=== PATIENT | female | born 1960 | race Caucasian/White ===

== ENCOUNTER 2024-06-21 09:26 | Outpatient (AMB) | payer OTHER, SELFPAY ==
[2024-06-21 09:51] VITALS: BP 138/86; PULSE 86; RESP 13; O2SAT 99; BMI 19.6
--- NOTE | 2024-06-21 09:51 | MHC.PC.OV ---
Vital Signs 06/21/24 09:51 Height 5 ft 4 in Weight 114 lb BMI 19.6 BP 138/86 Blood Pressure Location Rt brachial Position Sitting Respiration 13 Pulse 86 Pulse Source Pulse Oximeter Pulse Oximetry (%) 99 Oxygen Delivery Method Room Air Intake Visit Reasons: Continue care Intake Note: Patient is here to transfer care from [facility] to [facility]. Patient would like to request a referral to Dr. Collin Vieira [facility] [place]. Anthropology Instructor Required: No Accompanied by: Self / Same As Patient Allergies No Known Allergies Allergy (Verified 06/21/24 09:59) Tobacco use date assessed: 06/21/24 Fall risk assessment: No Falls in past year Last assessed Fall Risk: 06/21/24 Dental Screening Dental Screen Date: 06/21/24 Did you have a dental visit in the last 12 months?: No Did you have a dental problem in the last 6 months where you did not have access to dental care?: No Was dental information given to patient?: Patient has dentist HPI HPI Comments History of Present Illness Details The patient is a 63 year old female with a past medical history of aplastic anemia, PNH, hypertension presenting for follow up CV: losartan 100mg. She was on cartia in the past. Denies chest pain, dizziness, vision changes Aplastic anemia: She follows with [facility], Dr Stovall. Was seeing Dr Stafford locally. Diagnosed in 2019 after c/o fatigue, bruising soon after son . [place] pancytopenia. Stopped her meds at the time-paxil, chlorthalidione. Workup for secondary causes of aplastic anemia. Proceeded with immunosuppressive therapy starting in December 2018. She is on Promacta, Fabhalta. Valtrex 500,g daily Preventive: due for mmamogram ROS CONSTITUTIONAL: Denies weight loss, fever and chills. HEENT: Denies changes in vision and hearing. RESPIRATORY: Denies SOB and cough. CV: Denies palpitations and CP GI: Denies abdominal pain, nausea, vomiting and diarrhea. : Denies dysuria and urinary frequency. MSK: Denies new myalgia and joint pain. SKIN: Denies rash and pruritus. NEUROLOGICAL: Denies headache PSYCHIATRIC: Denies recent changes in mood. PHYSICAL EXAM: GENERAL: Alert and oriented x 3. NAD EYES: EOMI. Anicteric. HENT: Moist mucous membranes. No scleral icterus. No cervical lymphadenopathy. LUNGS: Clear to auscultation bilaterally. CARDIOVASCULAR: Regular rate and rhythm. No murmur. No JVD. ABDOMEN: Soft, non-tender +bs EXTREMITIES: No edema. Non-tender. SKIN: No rashes or lesions. Warm. NEUROLOGIC: No focal neurological deficits. CN II-XII grossly intact PSYCHIATRIC: Cooperative. Appropriate mood and affect [facility] Medical History (Updated 06/25/24 @ 13:39 by Julissa Taylor MD) Hypertension Paroxysmal nocturnal hemoglobinuria (PNH) Aplastic anemia Surgical History No pertinent past surgical history Family History Mother Hypertension High blood cholesterol Cardiovascular disease Father Cardiovascular disease High blood cholesterol Hypertension Social History Household Members: Spouse and Children Housing: House Are you a primary child care center administrator to a significant other at home: No Do you presently have visiting nurse or other home services: No 75 years or older and lives alone: No Alcohol intake: current Alcohol intake frequency: 0-2 drinks per day Alcohol type: wine Patient Tobacco Use Status: Never used Tobacco e-Cigarette/Vaping Use: Never Used service: No Current occupational status: retired Cognitive needs: No Hearing needs: No Vision needs: No Questionnaire PHQ-9 Over the last 2 weeks, how often have you been bothered by any of the following problems? 1. Little interest or pleasure in doing things: not at all 2. Feeling down, depressed, or hopeless: not at all 3. Trouble falling or staying asleep, or sleeping too much: not at all 4. Feeling tired or having little energy: not at all 5. Poor appetite or overeating: not at all 6. Feeling bad about yourself - or that you are a failure or have let yourself or your family down: not at all 7. Trouble concentrating on things, such as reading the newspaper or watching television: not at all 8. Moving or speaking so slowly that other people could have noticed. Or the opposite - being so fidgety or restless that you have been moving around a lot more than usual: not at all 9. Thoughts that you would be better off or of hurting yourself in some way: not at all Total score: 0 Depression Screening Interpretation: Negative (neg) Depression Screening Done: Yes [id number] - PHQ-9 Billing: Yes Source: Developed by Drs. Torito Almanza, Merna Kirkland, Vince Emmanuel and colleagues, with an educational iglesia from [employer]. Thrive Questionnaire Date Thrive assessed: 06/21/24 I am a: Patient Within the past 12 months, did the food you bought not last and you didn't have the money to get more?: Never true Within the past 12 months, did you worry whether your food would run out before you got money to buy more?: Never true Do you have trouble paying for medicines?: No Do you have trouble getting transportation to medical appointments?: No Do you have trouble paying your heating and electricity bill?: No Do you have trouble taking care of your child, family member or friend?: No Do you have trouble with day-to-day activities such as bathing, preparing meals, shopping, managing finances, etc.?: No Are you currently unemployed and looking for a job?: No Are you interested in more education?: No Please select the resources that you would like help with: None Currently or been in a relationship where the following occur: No concerns reported THRIVE Score: 0 AUDIT C Alcohol Use Questionnaire (AUDIT-C) 1. How often do you have a drink containing alcohol?: 4 or more times a week 2. How many drinks containing alcohol do you have on a typical day when you are drinking?: 1 or 2 3. How often do you have six or more drinks on one occasion?: Never Total Score: 4 VÍCTOR-7 AMB Questionnaire VÍCTOR-7 Date VÍCTOR - 7 assessed: 06/21/24 Feeling nervous, anxious, or on edge: 0 = Not at all Not being able to stop or control worryin = Not at all Worrying too much about different things: 0 = Not at all Trouble relaxin = Not at all Being so restless that it is hard to sit still: 0 = Not at all Becoming easily annoyed or irritable: 0 = Not at all Feeling afraid as if something awful might happen: 0 = Not at all Total VÍCTOR-7 score (0-4 normal; 5-9 mild; 10-14 moderate; 15-21 severe): 0 Source: Developed by Drs. Torito Almanza, Merna Kirkland, Vince Emmanuel and colleagues, with an educational iglesia from [employer]. VÍCTOR-7 Assessment Billing VÍCTOR-7 Assessment Tool: VÍCTOR-7 Assessment [id number] Physical exam (Primary Care) Vital Signs: Last Vital Signs Pulse 86 06/21/24 09:51 Resp 13 06/21/24 09:51 BP 138/86 06/21/24 09:51 Pulse Ox 99 06/21/24 09:51 Oxygen Delivery Method Room Air 06/21/24 09:51 BMI result Body Mass Index 19.6 Tobacco/Smoking Status: Tobacco use Status Tobacco use date assessed 06/21/24 06/21/24 10:07 Patient Tobacco Use Status Never used Tobacco 06/21/24 10:16 e-Cigarette/Vaping Use Never Used 06/21/24 10:07 PHQ-9: PHQ-9 Score PHQ-9: Total score 0 06/25/24 13:41 Depression Screening Interpretation: Negative (neg) Thrive Assessment: Date of Thrive Assessment Date Thrive assessed 06/21/24 06/21/24 10:10 Currently or been in a relationship where the following occur: No concerns reported Assessment and Plan Assessment & Plan (1) Aplastic anemia: Code(s): D61.9 - Aplastic anemia, unspecified Plan: continue follow up with hematology (2) Hypertension: Code(s): I10 - Essential (primary) hypertension Qualifiers: Hypertension type: primary hypertension Qualified Code(s): I10 - Essential (primary) hypertension Plan: Adequate control on current medications Orders: Orders IRON PROFILE 06/21/24 D61.9 - Aplastic anemia, unspecified MM screening mammo BI 06/21/24 Z12.31 - Encounter for screening mammogram for malignant neoplasm of breast Vitamin B12 and Folate 06/21/24 D61.9 - Aplastic anemia, unspecified Referrals Hematology & Oncology Referral D61.9 - Aplastic anemia, unspecified Coding Level of Care Code Est Pt Level 4 (61743) Complex EM visit Add On G2211 Diagnoses Aplastic anemia D61.9 Primary hypertension I10 Hypertension type: primary hypertension Additional Codes VÍCTOR-7 Assessment Billing - VÍCTOR-7 Assessment Tool: VÍCTOR-7 Assessment 67172 ([id number])
== END 2024-06-21 11:24 | disposition home or self-care (01) ==
PROVIDERS: PCP Internal Medicine; Visit Provider Internal Medicine
DX: D61.9 Aplastic anemia, unspecified (principal); I10 Essential (primary) hypertension
CPT/HCPCS: 99214; G2211

== ENCOUNTER 2024-06-21 10:46 | Outpatient (REF) | payer OTHER, SELFPAY ==
[2024-06-21 15:37] LABS: Iron 305 mcg/dL (30-160); Percent Iron Saturation 49 % (15-50); Total Iron Binding Capacity 619 mcg/dL (228-428); Unsaturated Iron Binding 314 ug/dL
[2024-06-21 15:51] LABS: Folate 12.8 ng/mL (> or = 4.0); Vitamin B12 276 pg/mL (200-900)
== END 2024-06-21 10:47 | disposition home or self-care (01) ==
LOC: HO.WFDLDS 10:46
PROVIDERS: Visit Provider Internal Medicine
DX: D61.9 Aplastic anemia, unspecified (principal)
CPT/HCPCS: 36415; 82607; 82746; 83540

== ENCOUNTER 2024-06-28 10:53 | Outpatient (REF) | payer OTHER, SELFPAY ==
[2024-06-28 14:25] LABS: MANUAL DIFF FLAG NO
[2024-06-28 14:28] LABS: Basophils Percent Auto 0.7 % (0-2); Eosinophils Absolute Auto 0.1 X10*3/uL (0.0-0.4); Eosinophils Percent Auto 2.2 % (0-4); Hemoglobin 10.4 g/dl (12.0-16.0); Imm Gran Abs Auto 0.01 X10*3/uL (0.00-0.03); Imm Gran Pct Auto 0.4 % (0.0-0.4); Lymphocytes Absolute Auto 0.8 X10*3/uL (1.2-4.9); Lymphocytes Percent Auto 27.8 % (20-40); Mean Corpuscular HGB Conc 34.7 g/dl (31.0-35.0); Mean Corpuscular Hemoglobin 34.3 pg (27.0-33.0); Mean Platelet Volume 9.7 fL (9.4-12.3); Monocytes Absolute Auto 0.4 X10*3/uL (0.1-1.2); Monocytes Percent Auto 14.1 % (2-11); Neutrophils Absolute Auto 1.5 x10*3/uL (2.0-8.3); Neutrophils Percent Auto 54.8 % (45-73); Platelet Count 288 X10*3/uL (160-400); Red Blood Count 3.03 X10*6/uL (4.20-5.50); Red Cell Distribution Width 14.6 % (11.0-16.0); White Blood Count 2.7 X10*3/uL (4.8-10.8)
[2024-06-28 15:00] LABS: Alanine Aminotransferase 15 U/L (0-31); Albumin Level 3.7 g/dL (3.5-5.0); Alkaline Phosphatase 68 U/L (39-117); Aspartate Amino Transferase 20 U/L (5-31); Bilirubin Direct 0.3 mg/dL (0.0-0.5); Bilirubin Total 0.9 mg/dL (0.0-1.0); Cholesterol 209 mg/dL (<200); HDL Cholesterol 70 mg/dL (>40); LDL Cholesterol Calculated 124 mg/dL (<100); Total Protein 5.9 g/dL (6.5-8.0); Triglycerides 76 mg/dL (<150)
== END 2024-06-28 10:54 | disposition home or self-care (01) ==
LOC: HO.WFDLDS 10:53
PROVIDERS: Visit Provider Internal Medicine Hematology
DX: D59.5 Paroxysmal nocturnal hemoglobinuria [Marchiafava-Micheli] (principal)
CPT/HCPCS: 36415; 80061; 80076; 85025

== ENCOUNTER 2025-01-28 10:07 | Outpatient (AMB) | payer OTHER, SELFPAY ==
--- NOTE | 2025-01-28 10:13 | MHC.PC.OV ---
Vital Signs 01/28/25 10:18 Height 5 ft 4 in Weight 116 lb 6 oz BMI 20.0 BP 126/72 Blood Pressure Location Rt brachial Position Sitting Respiration 14 Pulse 98 Pulse Source Pulse Oximeter Pulse Oximetry (%) 99 Oxygen Delivery Method Room Air Intake Visit Reasons: annual Intake Note: Physical Needle Process Felt Goods Supervisor Required: No Allergies No Known Allergies Allergy (Verified 01/28/25 10:16) Medication List - Last Reconciled 01/28/25 by Julissa Taylor MD amlodipine 5 mg PO DAILY atorvastatin 20 mg PO DAILY cyclosporine 50 mg PO BID eltrombopag olamine (Promacta) 100 mg PO DAILY hydrochlorothiazide 25 mg PO QPM iptacopan (Fabhalta) 200 mg PO BID losartan 100 mg PO QPM valacyclovir 500 mg PO DAILY Tobacco use date assessed: 01/28/25 Fall risk assessment: No Falls in past year Last assessed Fall Risk: 01/28/25 Dental Screening Dental Screen Date: 06/21/24 HPI HPI Comments History of Present Illness Details The patient is a 64 year old female with a past medical history of aplastic anemia, PNH, hypertension presenting for annual exam CV: losartan 100mg, amlodipine, hctz. BP is excellent. She was on cartia in the past. Denies chest pain, dizziness, vision changes Aplastic anemia: She follows with [facility], Dr Stovall. Was seeing Dr Stafford locally. Diagnosed in 2019 after c/o fatigue, bruising soon after son . [place] pancytopenia. Stopped her meds at the time-paxil, chlorthalidione. Workup for secondary causes of aplastic anemia. Proceeded with immunosuppressive therapy starting in December 2018. She is on Promacta, Fabhalta. Valtrex 500,g daily Preventive: due for mmamogram Colon cancer screening: Declines colononoscopy, cologuard ROS CONSTITUTIONAL: Denies weight loss, fever and chills. HEENT: Denies changes in vision and hearing. RESPIRATORY: Denies SOB and cough. CV: Denies palpitations and CP GI: Denies abdominal pain, nausea, vomiting and diarrhea. : Denies dysuria and urinary frequency. MSK: Denies new myalgia and joint pain. SKIN: Denies rash and pruritus. NEUROLOGICAL: Denies headache PSYCHIATRIC: Denies recent changes in mood. PHYSICAL EXAM: GENERAL: Alert and oriented x 3. NAD EYES: EOMI. Anicteric. HENT: Moist mucous membranes. No scleral icterus. No cervical lymphadenopathy. LUNGS: Clear to auscultation bilaterally. CARDIOVASCULAR: Regular rate and rhythm. No murmur. No JVD. ABDOMEN: Soft, non-tender +bs EXTREMITIES: No edema. Non-tender. SKIN: No rashes or lesions. Warm. NEUROLOGIC: No focal neurological deficits. CN II-XII grossly intact PSYCHIATRIC: Cooperative. Appropriate mood and affect [facility] Medical History Hypertension Paroxysmal nocturnal hemoglobinuria (PNH) Aplastic anemia Surgical History No pertinent past surgical history Family History Mother Hypertension High blood cholesterol Cardiovascular disease Father Cardiovascular disease High blood cholesterol Hypertension Social History Household Members: Spouse and Children Housing: House Are you a primary adult day care worker to a significant other at home: No Do you presently have visiting nurse or other home services: No 75 years or older and lives alone: No Alcohol intake: current Alcohol intake frequency: 0-2 drinks per day Alcohol type: wine Patient Tobacco Use Status: Never used Tobacco e-Cigarette/Vaping Use: Never Used service: No Current occupational status: retired Cognitive needs: No Hearing needs: No Vision needs: No Questionnaire Thrive Questionnaire Date Thrive assessed: 01/21/25 I am a: Patient What is your living situation today?: I have a steady place to live Within the past 12 months, did the food you bought not last and you didn't have the money to get more?: Never true Within the past 12 months, did you worry whether your food would run out before you got money to buy more?: Never true Do you have trouble paying for medicines?: No Do you have trouble getting transportation to medical appointments?: No Do you have trouble paying your heating and electricity bill?: No Do you have trouble taking care of your child, family member or friend?: No Do you have trouble with day-to-day activities such as bathing, preparing meals, shopping, managing finances, etc.?: No Are you currently unemployed and looking for a job?: No Are you interested in more education?: No Currently or been in a relationship where the following occur: No concerns reported THRIVE Score: 0 AUDIT C Alcohol Use Questionnaire (AUDIT-C) 1. How often do you have a drink containing alcohol?: 2-3 times a week 2. How many drinks containing alcohol do you have on a typical day when you are drinking?: 1 or 2 3. How often do you have six or more drinks on one occasion?: Never Total Score: 3 VÍCTOR-7 AMB Questionnaire VÍCTOR-7 Date VÍCTOR - 7 assessed: 01/28/25 Feeling nervous, anxious, or on edge: 0 = Not at all Not being able to stop or control worryin = Not at all Worrying too much about different things: 0 = Not at all Trouble relaxin = Not at all Being so restless that it is hard to sit still: 0 = Not at all Becoming easily annoyed or irritable: 0 = Not at all Feeling afraid as if something awful might happen: 0 = Not at all Total VÍCTOR-7 score (0-4 normal; 5-9 mild; 10-14 moderate; 15-21 severe): 0 Source: Developed by Drs. Torito Almanza, Merna Kirkland, Vince Emmanuel and colleagues, with an educational iglesia from [employer]. VÍCTOR-7 Assessment Billing VÍCTOR-7 Assessment Tool: VÍCTOR-7 Assessment 21948 Physical exam (Primary Care) Vital Signs: Last Vital Signs Pulse 98 01/28/25 10:18 Resp 14 01/28/25 10:18 BP 126/72 01/28/25 10:18 Pulse Ox 99 01/28/25 10:18 Oxygen Delivery Method Room Air 01/28/25 10:18 BMI result Body Mass Index 20.0 Tobacco/Smoking Status: Tobacco use Status Tobacco use date assessed 01/28/25 01/28/25 10:23 Patient Tobacco Use Status Never used Tobacco 01/28/25 10:22 e-Cigarette/Vaping Use Never Used 01/28/25 10:22 Thrive Assessment: Date of Thrive Assessment Date Thrive assessed 01/21/25 01/28/25 10:15 Currently or been in a relationship where the following occur: No concerns reported Coding Level of Care Code Est Pt Prev Care >65y(38854) Diagnoses Physical exam Z00.00 Paroxysmal nocturnal hemoglobinuria (PNH) D59.5 Primary hypertension I10 Hypertension type: primary hypertension Aplastic anemia D61.9 Additional Codes VÍCTOR-7 Assessment Billing - VÍCTOR-7 Assessment Tool: VÍCTOR-7 Assessment 12929 ([id number]) Assessment & Plan Assessment & Plan (1) Physical exam: Code(s): Z00.00 - Encounter for general adult medical examination without abnormal findings Category: Medical (2) Paroxysmal nocturnal hemoglobinuria (PNH): Code(s): D59.5 - Paroxysmal nocturnal hemoglobinuria [Marchiafava-Micheli] Category: Medical (3) Hypertension: Code(s): I10 - Essential (primary) hypertension Category: Medical Qualifiers: Hypertension type: primary hypertension Qualified Code(s): I10 - Essential (primary) hypertension (4) Aplastic anemia: Code(s): D61.9 - Aplastic anemia, unspecified Category: Medical Plan Physical exam Chronic medical conditions reviewed and stable Medications reconciled Will do DXA with mammo in Fall Declines colon cancer screening
[2025-01-28 10:18] VITALS: BP 126/72; PULSE 98; RESP 14; O2SAT 99
--- OUTSIDE RECORDS SUMMARY | 2025-01-28 11:49 | XMS_ITS | Clinical Summary ---
Author Organization [facility] Address [address] [place] [address] Care Team Providers Care Day Care Worker Name Role Phone Julissa Taylor MD Primary Care Provider [phone] Immunizations Name Administration Dates Next Due Pfizer SARS-CoV-2 COVID-19, mRNA, LNP-S, preservative free 01/26/2021,01/05/2021 Surgical History Surgery Date Site/Laterality Comments LASIK PROCEDURE:LASIK KNEE ARTHROSCOPY W/ MENISCAL REPAIR PROCEDURE:KNEE ARTHROSCOPY W/ MENISCAL REPAIR Medical History Medical History Date Comments Hypertension DX:Hypertension Social History Tobacco Use Types Packs/Day Years Used Date Smoking Tobacco: Never Smokeless Tobacco: Never Alcohol Use Standard Drinks/Week Comments Yes 0 (1 standard drink = 0.6 oz pur e alcohol) Comments Unknown Sex and Gender Information Value Date Recorded Sex Assigned at Not on file Legal Sex Female 8:14 PM EST Gender Identity Not on file Sexual Orientation Not on file Obstetrics History Plan of Treatment Health Maintenance Due Date Last Done Comments Breast Cancer Screening 1959 DTaP,Tdap,and Td Vaccines (1 - Tdap) 1978 Pneumococcal Vaccine: 50+ Years (1 of 2 - PCV) 1978 Pneumococcal Vaccine: Pediatrics (0 to 5 Years) and At-Risk Patients (6 to 64 Years) (1 of 2 - PCV) 1978 Zoster Vaccines (1 of 2) 1978 Cervical Cancer Screening: P ap Smear 1980 RSV Immunization Adult Patients (1 - Risk 60-74 years 1-dose series) 2019 COVID-19 Vaccine (3 - Pfizer risk series) 02/23/2021 01/26/2021, 01/05/2021 Cholesterol Screening (Lipid Panel) 09/24/2022 Colorectal Cancer Screening: Colonoscopy 09/24/2022 Depression Screening 09/24/2022 Hepatitis C Screening 09/24/2022 Osteoporosis Screening (Bone Density Screening) 09/24/2022 Social Influencers of Health Screening 09/24/2022 Hypertension/CHF/CAD Annual BMP Blood Test 10/21/2022 Influenza Vaccine (#1) 2024 Falls Risk Assessment 2024 HIB Vaccines Aged Out No longer eligi ble based on patient's age to complete this topic HPV Vaccines Aged Out No longer eligi ble based on patient's age to complete this topic Hepatitis A Vaccines Aged Out No long er eligible based on patient's age to complete this topic Hepatitis B Vaccines Aged Out No long er eligible based on patient's age to complete this topic IPV Vaccines Aged Out No longer eligi ble based on patient's age to complete this topic MMR Vaccines Aged Out No longer eligi ble based on patient's age to complete this topic Meningococcal ACWY Vaccine Aged Out N o longer eligible based on patient's age to complete this topic Meningococcal B Vaccine Aged Out No l onger eligible based on patient's age to complete this topic RSV Immunization Patients Under 20 months Aged Out No longer eligible b ased on patient's age to complete this topic Varicella Vaccines Aged Out No longer eligible based on patient's age to complete this topic Care Teams Day Care Worker Relationship Specialty Start Date End Date Julissa Taylor MD PCP - General Internal Medicine 01/26/21
--- OUTSIDE RECORDS SUMMARY | 2025-01-28 11:49 | XMS_ITS | Clinical Summary ---
Author Organization [facility] Address [address] [place] [address] Care Team Providers Care Criminal Profiler Name Role Phone Julissa Taylor MD Primary Care Provider [phone] Allergies Active Allergy Reactions Criticality Noted Date Comments Penicillins Hives,Swelling 11/30/2018 Medications Medication Sig Dispensed Refills Start Date End Date Status valACYclovir (VALTREX) 500 MG tablet Take 1 tablet (500 mg total) by mouth daily. 90 tablet 3 06/24/2020 Active torsemide (DEMADEX) 20 MG tablet Take 1 tablet (20 mg total) by mouth daily. 30 tablet 5 08/10/2020 Active cycloSPORINE (SandIMMUNE) 100 MG capsule Take 1 capsule (100 mg total) by mouth 2 (two) times a day. 60 capsule 2 01/23/2021 Active dilTIAZem (DILACOR XR) 180 MG 24 hr capsule TAKE 1 CAPSULE BY MOUTH ONCE DAILY 30 capsule 11 02/19/2021 Active eltrombopag (Promacta) 50 MG tablet Take 2 tablets (100 mg total) by mouth daily. 60 tablet 5 02/19/2021 Active Active Problems Problem Noted Date Diagnosed Date Aplastic anemia 01/24/2019 Pancytopenia 12/05/2018 Essential hypertension 12/05/2018 Social History Tobacco Use Types Packs/Day Years Used Date Smoking Tobacco: Never Smokeless Tobacco: Never Alcohol Use Standard Drinks/Week Comments Yes 0 (1 standard drink = 0.6 oz pur e alcohol) Sex and Gender Information Value Date Recorded Sex Assigned at Not on file Gender Identity Not on file Sexual Orientation Not on file Last Filed Vital Signs Vital Sign Reading Time Taken Comments Blood Pressure 155/83 02/02/2021 12:01 PM EDT Pulse 82 02/02/2021 12:01 PM EDT Temperature 36.4 ??C (97.5 ??F) 02/02/2021 12:01 PM E DT Respiratory Rate 18 01/10/2019 11:47 AM EDT Oxygen Saturation 100% 02/02/2021 12:01 PM EDT Inhaled Oxygen Concentration - - Weight 53.8 kg (118 lb 9.6 oz) 02/02/2021 12:01 PM EDT Height 165.1 cm (5' 5 ) 02/02/2021 12:01 PM EDT Body Mass Index 19.74 02/02/2021 12:01 PM EDT Plan of Treatment Health Maintenance Due Date Last Done Comments Depression Screening 1971 Preventative Health Evaluation 1977 DTap / Tdap / Td (1 - Tdap) 1978 Shingrix-Zoster Vaccine (1 o f 2) 1978 Cervical Cancer Screening (Pap Smear) 1980 Colon Cancer Screening (Colonoscopy) 2004 Breast Cancer Screening (Mammogram) 2009 RSV Adult > 60+ Yrs or (1 - Risk 60-74 years 1-dose series) 2019 COVID-19 Vaccine (3 - Pfizer risk series) 02/23/2021 01/26/2021, 01/05/2021 Pneumococcal Vaccine (2 of 2 - PPSV23 or PCV20) 08/25/2021 06/30/2021 Pneumococcal Vaccine (2 of 2 - PPSV23 or PCV20) 08/25/2021 06/30/2021 Influenza Vaccine (#1) 2024 , 07/04/2018 Fall Risk Assessment 2024 Osteoporosis Screening (DEXA Scan) 2024 Hepatitis C Screening Completed 12/18/2018 Hepatitis B Vaccines Aged Out No long er eligible based on patient's age to complete this topic RSV Ped < 20 months Aged Out No longe r eligible based on patient's age to complete this topic Care Teams Criminal Profiler Relationship Specialty Start Date End Date Julissa Taylor MD PCP - General Internal Medicine 01/26/21
== END 2025-01-28 10:45 | disposition home or self-care (01) ==
LOC: HO.HMCFM 10:07
PROVIDERS: PCP Internal Medicine; Visit Provider Internal Medicine
DX: Z00.00 Encounter for general adult medical examination without abnormal findings (principal); D59.5 Paroxysmal nocturnal hemoglobinuria [Marchiafava-Micheli]; I10 Essential (primary) hypertension; D61.9 Aplastic anemia, unspecified

== ENCOUNTER → 2025-01-28 10:07 | Outpatient (BNVA) | payer OTHER, SELFPAY | PROVIDERS: PCP Internal Medicine; Visit Provider Internal Medicine | DX: Z00.00 Encounter for general adult medical examination without abnormal findings (principal); D59.5 Paroxysmal nocturnal hemoglobinuria [Marchiafava-Micheli]; I10 Essential (primary) hypertension; D61.9 Aplastic anemia, unspecified; Z79.899 Other long term (current) drug therapy | CPT/HCPCS: 96127 ==

== ENCOUNTER 2025-08-05 10:05 | Outpatient (AMB) | payer OTHER, SELFPAY ==
--- NOTE | 2025-08-05 10:13 | MHC.PC.OV ---
Vital Signs 08/05/25 10:14 08/05/25 10:24 Height 5 ft 4 in Weight 112 lb BMI 19.2 BP 144/72 H 114/72 Blood Pressure Location Lt brachial Lt brachial Position Sitting Sitting Respiration 14 Pulse 81 Pulse Source Pulse Oximeter Pulse Oximetry (%) 98 Oxygen Delivery Method Room Air Intake Visit Reasons: BP check Intake Note: Follow up Retail Sales Lead Required: No Allergies No Known Allergies Allergy (Verified 08/05/25 10:16) Tobacco use date assessed: 08/05/25 Fall risk assessment: No Falls in past year Last assessed Fall Risk: 08/05/25 Dental Screening Dental Screen Date: 08/05/25 Did you have a dental visit in the last 12 months?: Yes Did you have a dental problem in the last 6 months where you did not have access to dental care?: No Was dental information given to patient?: Patient has dentist HPI HPI Comments History of Present Illness Details The patient is a 64 year old female with a past medical history of aplastic anemia, PNH, hypertension presenting for follow up CV: losartan 100mg, amlodipine, hctz. Blood pressure is controlled. She was on cartia in the past. Denies chest pain, dizziness, vision changes Aplastic anemia: She follows with [facility], Dr Stovall. Was seeing Dr Stafford locally. Diagnosed in 2019 after c/o fatigue, bruising soon after son . Zuni pancytopenia. Stopped her meds at the time-paxil, chlorthalidione. Workup for secondary causes of aplastic anemia. Proceeded with immunosuppressive therapy starting in December 2018. Tolerating well. Watching kidney function Preventive: 07/2024-ordered today Colon cancer screening: Declines colononoscopy, cologuard ROS CONSTITUTIONAL: Denies weight loss, fever and chills. HEENT: Denies changes in vision and hearing. RESPIRATORY: Denies SOB and cough. CV: Denies palpitations and CP GI: Denies abdominal pain, nausea, vomiting and diarrhea. : Denies dysuria and urinary frequency. MSK: Denies new myalgia and joint pain. SKIN: Denies rash and pruritus. NEUROLOGICAL: Denies headache PSYCHIATRIC: Denies recent changes in mood. PHYSICAL EXAM: GENERAL: Alert and oriented x 3. NAD EYES: EOMI. Anicteric. HENT: Moist mucous membranes. No scleral icterus. No cervical lymphadenopathy. LUNGS: Clear to auscultation bilaterally. CARDIOVASCULAR: Regular rate and rhythm. No murmur. No JVD. ABDOMEN: Soft, non-tender +bs EXTREMITIES: No edema. Non-tender. SKIN: No rashes or lesions. Warm. NEUROLOGIC: No focal neurological deficits. CN II-XII grossly intact PSYCHIATRIC: Cooperative. Appropriate mood and affect [facility] Medical History Hypertension Paroxysmal nocturnal hemoglobinuria (PNH) Aplastic anemia Surgical History No pertinent past surgical history Family History Mother Hypertension High blood cholesterol Cardiovascular disease Father Cardiovascular disease High blood cholesterol Hypertension Social History Household Members: Spouse and Children Housing: House Are you a primary childbirth and infant care teacher to a significant other at home: No Do you presently have visiting nurse or other home services: No 75 years or older and lives alone: No Alcohol intake: current Alcohol intake frequency: 0-2 drinks per day Alcohol type: wine Patient Tobacco Use Status: Never used Tobacco e-Cigarette/Vaping Use: Never Used service: No Current occupational status: retired Cognitive needs: No Hearing needs: No Vision needs: No Questionnaire PHQ-9 Over the last 2 weeks, how often have you been bothered by any of the following problems? 1. Little interest or pleasure in doing things: not at all 2. Feeling down, depressed, or hopeless: not at all 3. Trouble falling or staying asleep, or sleeping too much: not at all 4. Feeling tired or having little energy: not at all 5. Poor appetite or overeating: not at all 6. Feeling bad about yourself - or that you are a failure or have let yourself or your family down: not at all 7. Trouble concentrating on things, such as reading the newspaper or watching television: not at all 8. Moving or speaking so slowly that other people could have noticed. Or the opposite - being so fidgety or restless that you have been moving around a lot more than usual: not at all 9. Thoughts that you would be better off or of hurting yourself in some way: not at all Total score: 0 Depression Screening Interpretation: Negative Depression Screening Done: Yes 12956 - PHQ-9 Billing: Yes Source: Developed by Drs. Torito Almanza, Merna Kirkland, Vince Emmanuel and colleagues, with an educational iglesia from [employer]. Thrive Questionnaire Date Thrive assessed: 01/21/25 I am a: Patient What is your living situation today?: I have a steady place to live Within the past 12 months, did the food you bought not last and you didn't have the money to get more?: Never true Within the past 12 months, did you worry whether your food would run out before you got money to buy more?: Never true Do you have trouble paying for medicines?: No Do you have trouble getting transportation to medical appointments?: No Do you have trouble paying your heating and electricity bill?: No Do you have trouble taking care of your child, family member or friend?: No Do you have trouble with day-to-day activities such as bathing, preparing meals, shopping, managing finances, etc.?: No Are you currently unemployed and looking for a job?: No Are you interested in more education?: No Please select the resources that you would like help with: None Currently or been in a relationship where the following occur: No concerns reported THRIVE Score: 0 AUDIT C Alcohol Use Questionnaire (AUDIT-C) 1. How often do you have a drink containing alcohol?: Never 3. How often do you have six or more drinks on one occasion?: Never Total Score: 0 VÍCTOR-7 AMB Questionnaire VÍCTOR-7 Date VÍCTOR - 7 assessed: 01/28/25 Source: Developed by Drs. Torito Almanza, Merna Kirkland, Vince Emmanuel and colleagues, with an educational iglesia from [employer]. Physical exam (Primary Care) Vital Signs: Last Vital Signs Pulse 81 08/05/25 10:14 Resp 14 08/05/25 10:14 BP 114/72 08/05/25 10:24 Pulse Ox 98 08/05/25 10:14 Oxygen Delivery Method Room Air 08/05/25 10:14 BMI result Body Mass Index 19.2 Tobacco/Smoking Status: Tobacco use Status Tobacco use date assessed 08/05/25 08/05/25 10:22 Patient Tobacco Use Status Never used Tobacco 08/05/25 10:22 e-Cigarette/Vaping Use Never Used 08/05/25 10:22 PHQ-9: PHQ-9 Score PHQ-9: Total score 0 08/05/25 10:30 Depression Screening Interpretation: Negative Thrive Assessment: Date of Thrive Assessment Date Thrive assessed 01/21/25 08/05/25 10:22 Currently or been in a relationship where the following occur: No concerns reported Coding Level of Care Code Est Pt Level 4 (84342) Complex EM visit Add On G2211 Diagnoses Primary hypertension I10 Hypertension type: primary hypertension Aplastic anemia D61.9 Paroxysmal nocturnal hemoglobinuria (PNH) D59.5 Additional Codes PHQ-9 - 63517 - PHQ-9 Billing: Yes ([id number]) Assessment & Plan Assessment & Plan (1) Hypertension: Code(s): I10 - Essential (primary) hypertension Category: Medical Qualifiers: Hypertension type: primary hypertension Qualified Code(s): I10 - Essential (primary) hypertension (2) Aplastic anemia: Code(s): D61.9 - Aplastic anemia, unspecified Category: Medical (3) Paroxysmal nocturnal hemoglobinuria (PNH): Code(s): D59.5 - Paroxysmal nocturnal hemoglobinuria [Marchdamionva-Micheli] Category: Medical Plan 64 year old female for follow up HTN-stable on current medications Due for lipid panel Watching kidney function per patient will order and CC [facility] Mammo ordered Orders: Orders Lipid Panel 08/05/25 D61.9 - Aplastic anemia, unspecified, E28.39 - Other primary ovarian failure, I10 - Essential (primary) hypertension, Z13.228 - Encounter for screening for other metabolic disorders Vitamin D 25-OH (D2 and D3) 08/05/25 D61.9 - Aplastic anemia, unspecified, E28.39 - Other primary ovarian failure, I10 - Essential (primary) hypertension, Z13.228 - Encounter for screening for other metabolic disorders Vitamin B12 and Folate 08/05/25 D61.9 - Aplastic anemia, unspecified MM tomosynthesis screening BI 08/05/25 Z12.31 - Encounter for screening mammogram for malignant neoplasm of breast Comprehensive Met. Panel 08/05/25 D61.9 - Aplastic anemia, unspecified, E28.39 - Other primary ovarian failure, I10 - Essential (primary) hypertension, Z13.228 - Encounter for screening for other metabolic disorders Complete Blood Count Auto Diff 08/05/25 D61.9 - Aplastic anemia, unspecified, E28.39 - Other primary ovarian failure, I10 - Essential (primary) hypertension, Z13.228 - Encounter for screening for other metabolic disorders Medications: New hydrochlorothiazide 25 mg PO QPM 90 tabs 3RF
[2025-08-05 10:14] VITALS: BP 144/72; PULSE 81; RESP 14; O2SAT 98; BMI 19.2
[2025-08-05 10:24] VITALS: BP 114/72
--- OUTSIDE RECORDS SUMMARY | 2025-08-05 11:36 | XMS_ITS | Clinical Summary ---
Author Organization [facility] Address [address] [place] [address] Care Team Providers Care Mutual Fund Accountant Name Role Phone Julissa Taylor MD Primary Care Provider Immunizations Immunization Administration Dates Next Due Pfizer SARS-CoV-2 COVID-19, [...] DTaP,Tdap,and Td Vaccines (1 - Tdap) 1978 Cervical Cancer Screening: P ap Smear 1980 Pneumococcal Vaccine: 50+ Years (1 of 1 - PCV) 2009 Zoster Vaccines (1 of 2) 2009 Depression Screening 10/23/2024 COVID-19 Vaccine (3 - 2024-2 6 season) 2025 01/26/2021, 01/05/2021 Influenza Vaccine (#1) 2025 RSV Immunization Adult Patients (1 - 1-dose 75+ series) 2034 HIB Vaccines Aged Out No longer eligi [...] age to complete this topic Care Teams Mutual Fund Accountant Relationship Specialty Start Date End Date Julissa Taylor MD PCP - General Internal Medicine 01/26/21
--- OUTSIDE RECORDS SUMMARY | 2025-08-05 11:36 | XMS_ITS | Encounter Summary ---
Author Organization [facility] Address [address] [facility] [address] [place] [phone] Phone Care Team Providers Care Metal Window Frame Maker Name Role Phone Nuria Brock MD Primary Care Provider Rui Wilson MD Unavailable [phone] Collin Vieira MD Unavailable [phone] Baltazar Stafford MD Unavailable [phone] Julissa Hand MD Primary Care Provider [phone] Encounter Details Date Type Department Care Team (Late st Contact Info) Description 01/14/2019 Documentation Central Registration, [address] [place] [address] Brayden Araya [address] [place] [phone] Social History Tobacco Use Types Packs/Day Years Used Date Smoking Tobacco: Never Smokeless Tobacco: Never Comments Unknown Sex and Gender Information Value Date Recorded Sex Assigned at Female 05/02/2021 5:31 PM EDT Legal Sex Female 12:05 PM EST Gender Identity Female 05/02/2021 5:31 PM EDT Sexual Orientation Straight 05/02/2021 5: 31 PM EDT documented as of this encounter Plan of Treatment Upcoming Encounters Date Type Department Care Team (Late st Contact Info) Description 12/02/2025 10:00 AM EST Blood Draw Laboratory Services, [address] [place] [address] Collin Vieira MD [address] [place] [phone] [email or web address] 12/02/2025 11:00 AM EST Office Visit Division of Hematologic Oncology, [address] [place] [address] Collin Vieira MD [address] [place] [phone] [email or web address] documented as of this encounter Visit Diagnoses Not on filedocumented in this encounter Additional Health Concerns Assessment Noted Time PHQ-2 Depression Total Score: 0 12/18/19 10:42 AM EST documented as of this encounter Care Teams Metal Window Frame Maker Relationship Specialty Start Date End Date Nuria Brock MD [address] [place] [phone] PCP - General Internal Medicine 12/04/18 01/29/21 Julissa Hand MD [address] [place] [phone] PCP - General Internal Medicine 01/30/21 Rui Wilson MD [address] [place] [phone] [email or web address] Provider Hematology 12/18/18 Collin Vieira MD [address] [place] [phone] [email or web address] 12/26/18 Baltazar Stafford MD [address] [place] [address] [email or web address] Referring Physician Hematology 01/08/19 5 documented as of this encounter Additional Source Comments The information contained in this document represents components of the legal health record. It is not the complete legal health record.[facility]
--- OUTSIDE RECORDS SUMMARY | 2025-08-05 11:36 | XMS_ITS | Clinical Summary ---
Author Organization [facility] Address [address] [place] [address] Phone Care Team Providers Care Regional Marketing Manager Name Role Phone Collin Vieira MD Unavailable [phone] Julissa Hand MD Primary Care Provider Allergies No known active allergies Medications Medication-Free Text Electrolytes, bun, creatinine every 2 weeks prn x 52 weeks Please fax results to [phone] Units 12 2 Active Medication-Free Text CBC differential and platelets Q4 weeks PRN Please fax to [phone] ICD10 : D61.9 aplastic anemia 12 Units 12 3 Active eltrombopag olamine (PROMACTA) 50 MG tablet TAKE 2 TABLETS BY MOUTH DAILY ON AN EMPTY STOMACH 1 HOUR BEFORE OR 2 HOURS AFTER A MEAL 56 tablet 11 4 Active iptacopan (FABHALTA) 200 mg capsule Take 1 capsule (200 mg total) by mouth 2 (two) times a day. 180 capsule 5 4 Active Medication-Free Text Please obtain lipid profile, lft's and CBC once a month PRN x 12 Fax to [phone] ICD10 D59.5 4 Units 12 4 Active amLODIPine (NORVASC) 5 MG tablet Take 1 tablet (5 mg total) by mouth daily. 90 tablet 3 5 11/21/19 26 Active valACYclovir (VALTREX) 500 MG tablet Take 1 tablet (500 mg total) by mouth daily. Per pt is taking medication daily instead of BID 180 tablet 12 Active losartan (COZAAR) 100 MG tablet TAKE 1 TABLET(100 MG) BY MOUTH DAILY 90 tablet 3 Active hydroCHLOROthia zide 12.5 MG tablet Take 1 tablet (12.5 mg total) by mouth every morning. 90 tablet 11 Active cycloSPORINE (SANDIMMUNE) 25 MG capsule Take 1 capsule (25 mg total) by mouth 2 (two) times a day. 5 Active Medication-Free Text Cbc diff platelets Qweek PRN Electrolytes/BUN /creatinine Qweek PRN Please fax to Collin Vieira MD [phone] 12 Units 12 Active atorvastatin (LIPITOR) 20 MG tablet Take 1 tablet (20 mg total) by mouth daily. 90 tablet 11 Active Active Problems Problem Noted Date Diagnosed Date Aplastic anemia 02/03/2021 PNH (paroxysmal nocturnal hemoglobinuria) 2020 Encounters Date Type Department Care Team Description 06/03/2025 11:00 AM EDT Office Visit Division of Hematologic Oncology, [facility] [address] [place] [address] Collin Vieira MD Aplastic anemia (Primary Dx); PNH (paroxysmal nocturnal hemoglobinuria) 06/03/2025 Orders Only Laboratory Services, [facility] [address], [address] [place] [address] Barbara Bentley PNH (paroxysmal nocturnal hemoglobinuria) (Primary Dx) 05/28/2025 Refill Division of Hematologic Oncology, [facility] [place] [address] [place] [address] Collin Vieira MD Medication Refill 05/24/2025 Refill Division of Hematologic Oncology, [facility] [place] [address] [place] [address] Marilynn Stiles CNP Medication Refill from Last 3 Months Immunizations Immunization Administration Dates Next Due COVID-19 (Pre-08/14) Pfizer Vaccine, mRNA, PF 01/26/2021,01/05/2021 Hib,PRP-T 06/30/2021 INFLUENZA, SPLIT VIRUS, TRIVALENT PF 07/13/2017, 07/14/2016,07/22/2015 Influenza Quadrivalent Preservative Free IM 10/01/2019,07/04/2018 Meningococcal ACWY, unspecified formulation 01/22 Meningococcal B 02/11/2021 Meningococcal B, OMV (MenB-4C) 05/05/2021 Pneumococcal conjugate PCV13 06/30/2021 Social History Tobacco Use Types Packs/Day Years Used Date Smoking Tobacco: Never Smokeless Tobacco: Never Education Answer Date Recorded Are you interested in more education? Not on emerson e 02/17/2023 Are you concerned about learning? Not on file 02/17/2023 No 02/17/2023 No 02/17/2023 Digital Access Answer Date Recorded No 03/21/2023 No 03/21/2023 No 03/21/2023 Reliable internet access at home? Not on file 03/21/2023 Device with a working camera? Not on file Comments Unknown Sex and Gender Information Value Date Recorded Sex Assigned at Female 05/02/2021 5:31 PM EDT Legal Sex Female 12:05 PM EST Gender Identity Female 05/02/2021 5:31 PM EDT Sexual Orientation Straight 05/02/2021 5: 31 PM EDT Last Filed Vital Signs Vital Sign Reading Time Taken Comments Blood Pressure 168/77 06/03/2025 10:22 AM EDT Pulse 81 06/03/2025 10:22 AM EDT Temperature 36.3 C (97.4 F) 06/03/2025 10:21 AM EDT Respiratory Rate 18 11/26/2024 10:4 6 AM EST Oxygen Saturation 99% 06/03/2025 10: 22 AM EDT Inhaled Oxygen Concentration - - Weight 50.3 kg (110 lb 14.3 oz) 025 10:22 AM EDT Height 162.2 cm (5' 3.86 ) 06/03/2025 1 0:22 AM EDT Body Mass Index 19.12 06/03/2025 10:22 AM EDT Plan of Treatment Upcoming Encounters Date Type Department Care Team (Late st Contact Info) Description 12/02/2025 10:00 AM EST Blood Draw Laboratory Services, [address] [place] [address] Collin Vieira MD [address] [place] [phone] [email or web address] 12/02/2025 11:00 AM EST Office Visit Division of Hematologic Oncology, [address], [address] [place] [address] Collin Vieira MD [address] [place] [phone] [email or web address] Maintenance Due Date Last Done Comments ZOSTER VACCINES (1 of 2) 1978 MAMMOGRAM 1999 COLOGUARD 2004 COLONOSCOPY 2004 COLORECTAL CANCER SCREENING 2004 FIT TEST 2004 FOBT 2004 SIGMOIDOSCOPY 2004 VIRTUAL COLONOSCOPY 2004 RSV VACCINE (1 - Risk 50-74 years 1-dose series) 2009 DEPRESSION SCREENING 12/18/2019 12/18/2018 PNEUMOCOCCAL VACCINES (50+ years) (2 of 2 - PPSV23) 08/25/2021 06/30/2021 OSTEOPOROSIS SCREENING INITIAL (ONE-TIME) 2024 INFLUENZA VACCINE (#1) 2025 , 08/03/2023, 07/25/2022, Additional history exists COVID-19 VACCINE ( season) 2025 07/29/2024, 08/03/2023, 12/27/2022, Additional history exists CREATININE LEVEL 06/03/2026 06/03/2025, 01/2025, 05/28/2024, Additional history exists CYCLOSPORINE LEVEL 06/03/2026 06/03/2025, 0 11/26/2024, 05/28/2024, Additional history exists POTASSIUM LEVEL 06/03/2026 06/03/2025, 02/0 01/2025, 05/28/2024, Additional history exists LIPID PANEL 11/26/2029 11/26/2024 Adult Td,Tdap Booster 12/25/2033 12/26/2023 HEPATITIS C SCREENING Completed 12/18/2018 HIV ONE-TIME SCREENING (18-65 YEARS) Completed 12/18/2018 SMOKING STATUS SCREENING (Once After 26 Yrs) Completed 12/18/2018 MENINGOCOCCAL VACCINES (ACWY) Aged Out 02/11/2021 No longer eligible based on patient's age to complete this topic HIB VACCINES Aged Out 06/30/2021 No longer eligi ble based on patient's age to complete this topic MENINGOCOCCAL VACCINES (B) Aged Out 08/03/2022, No longer eligible based on patient's age to complete this topic HEPATITIS A VACCINES Aged Out No long er eligible based on patient's age to complete this topic Medical Devices Not on file Procedures Procedure Name Priority Date/Time Associated Diagnosis Comments OUTSIDE LAB 07/09/2025 OUTSIDE LAB 06/24/2025 CYCLOSPORIN LEVEL Routine 06/03/2025 10: 03 AM EDT PNH (paroxysmal nocturnal hemoglobinuria) HAPTOGLOBIN Routine 06/03/2025 10:03 AM EDT PNH (paroxysmal nocturnal hemoglobinuria) LDH Routine 06/03/2025 10:03 AM EDT PNH (paroxysmal nocturnal hemoglobinuria) MAGNESIUM Routine 06/03/2025 10:03 AM EDT PNH (paroxysmal nocturnal hemoglobinuria) COMPREHENSIVE METABOLIC PANEL Routine 06/03/2025 10:03 AM EDT PNH (paroxysmal nocturnal hemoglobinuria) HC BLOOD COUNT COMPLETE AUTO&AUTO DIFRNTL WBC Routine 06/03/2025 10:03 AM EDT PNH (paroxysmal nocturnal hemoglobinuria) LIPID PANEL Routine 11/26/2024 10:19 AM EST Aplastic anemia HEPATITIS C ANTIBODY, QUALITATIVE Routine 12/18/2018 2:19 PM EST Aplastic anemia from Last 3 Months or Most Recently Relevant to Health Maintenance Results * Outside Lab (07/09/2025) Only the most recent of2 resultswithin the time period is included. us Scanning Interface Provider LAB BLOOD ORDERABLES Final Result * (ABNORMAL) LDH (06/03/2025 10:03 AM EDT) LDH 242(H) 135 - 225 U/L [facility] LIC# [id number] Comment:INTERPRET WITH CAUTI ON, SPECIMEN HEMOLYZED Blood 06/03/2025 10:0 3 AM EDT 06/03/2025 10:09 AM EDT us Collin Vieira MD LAB BLOOD ORDERABLES Final Res ult [facility] LIC# [id number] [address] [place] [address] * (ABNORMAL) Comprehensive metabolic panel (06/03/2025 10:03 AM EDT) SODIUM 129(L) 136 - 145 mmol/L [facility] LIC# [id number] POTASSIUM 5.3(H) 3.4 - 5.1 mmol/L [facility] LIC# [id number] CHLORIDE 93(L) 98 - 107 mmol/L [facility] LIC# [id number] CO2 23 22 - 31 mmol/L [facility] LIC# [id number] BUN 27(H) 6 - 23 mg/dL [facility] LIC# [id number] CREATININE 1.22(H) 0.50 - 1.20 mg/dL [facility] LIC# [id number] GLUCOSE 104(H) 70 - 100 mg/dL [facility] LIC# [id number] ALBUMIN 4.5 3.5 - 5.2 g/dL [facility] LIC# [id number] TOTAL PROTEIN 6.9 6.4 - 8.3 g/dL [facility] LIC# [id number] CALCIUM 10.0 8.8 - 10.7 mg/dL [facility] LIC# [id number] ALKALINE PHOSPHATASE 77 35 - 104 U/L [facility] LIC# [id number] TOTAL BILIRUBIN 1.0 0.2 - 1.2 mg/dL [facility] LIC# [id number] AST 23 <33 U/L [facility] LIC# [id number] ALT 16 <34 U/L [facility] LIC# [id number] GLOBULIN 2.4 2.3 - 4.2 g/dL [facility] LIC# [id number] EGFR 49(L) >59 mL/min/1.7 3m2 [facility] LIC# [id number] Comment:Estimated glomerular filtration rate calculated using the CKD-EPI refit equation. ANION GAP 13 7 - 17 mmol/L [facility] LIC# [id number] Blood 06/03/2025 10:0 3 AM EDT 06/03/2025 10:09 AM EDT Collin Vieira MD LAB BLOOD ORDERABLES Final Res ult [facility] LIC# [id number] [address] [place] [address] * (ABNORMAL) Cyclosporine Level (06/03/2025 10:03 AM EDT) CYCLOSPORINE 52(L) 100 - 350 ng/mL [facility] Comment:REFERENCE RANGE IS V ARIABLE AND DEPENDS ON CLINICAL INDICATION. CONTACT TRANSPLANT TEAM OR PHARMACY WITH ANY QUESTIONS. THIS TEST AND ITS PERFORMANCE CHARACTERISTICS WERE DETERMINED BY THE CLINICAL CHEMISTRY LAB, [facility]. IT HAS NOT BEEN CLEARED OR APPROVED BY THE U.S. FDA, WHICH HAS DETERMINED THAT SUCH CLEARANCE OR APPROVAL IS NOT NECESSARY. Blood 06/03/2025 10:0 3 AM EDT 06/03/2025 10:09 AM EDT us Collin Vieira MD LAB BLOOD ORDERABLES Final Res ult [facility] [address] [place] [address] * (ABNORMAL) CBC and differential (06/03/2025 10:03 AM EDT) WBC 3.66(L) 4.00 - 10.00 K/uL [facility] LIC# [id number] RBC 3.56(L) 3.90 - 6.00 M/uL [facility] LIC# [id number] HGB 11.6 11.5 - 16.4 g/dL [facility] LIC# [id number] HCT 34.1(L) 36.0 - 48.0 % [facility] LIC# [id number] PLT 384 150 - 450 K/uL [facility] LIC# [id number] MCV 95.8 80.0 - 100.0 fL [facility] LIC# [id number] MCH 32.6(H) 27.0 - 32.0 pg [facility] LIC# [id number] MCHC 34.0 32.0 - 36.0 g/dL [facility] LIC# [id number] RDW 13.2 11.5 - 14.5 % [facility] LIC# [id number] MPV 9.7 8.4 - 12.0 fL [facility] LIC# [id number] NRBC 0.00 0 /100 WBCs [facility] LIC# [id number] ABSOLUTE NRBC 0.00 0 K/uL [facility] LIC# [id number] DIFF METHOD Auto [facility] LIC# [id number] NEUTS 52.3 48.0 - 76.0 % [facility] LIC# [id number] LYMPHS 31.1 18.0 - 41.0 % [facility] LIC# [id number] MONOS 12.8(H) 4.0 - 11.0 % [facility] LIC# [id number] EOS 2.5 0.0 - 5.0 % [facility] LIC# [id number] BASOS 0.8 0.0 - 1.5 % [facility] LIC# [id number] % IMMATURE GRANS 0.5 0.0 - 1.0 % [facility] LIC# [id number] ABSOLUTE NEUTS 1.91(L) 1.92 - 7.60 K/uL [facility] LIC# [id number] ABSOLUTE LYMPHS 1.14 0.72 - 4.10 K/uL [facility] LIC# [id number] ABSOLUTE MONOS 0.47 0.16 - 1.10 K/uL [facility] LIC# [id number] ABSOLUTE EOS 0.09 0.00 - 0.50 K/uL [facility] LIC# [id number] ABSOLUTE BASOS 0.03 0.00 - 0.15 K/uL [facility] LIC# [id number] ABS IMMATURE GRANS 0.02 0.00 - 0.10 K/uL [facility] LIC# [id number] Blood 06/03/2025 10:0 3 AM EDT 06/03/2025 10:09 AM EDT Collin Vieira MD LAB BLOOD ORDERABLES Final Res ult Performing Organization Address [facility] Co de Phone Number [facility] LIC# [id number] [address] [place] [address] * Magnesium (06/03/2025 10:03 AM EDT) MAGNESIUM 1.9 1.7 - 2.6 mg/dL [facility] LIC# [id number] Blood 06/03/2025 10:0 3 AM EDT 06/03/2025 10:09 AM EDT Collin Vieira MD LAB BLOOD ORDERABLES Final Res ult Performing Organization Address City/[facility] Co de Phone Number [facility] LIC# [id number] [address] [place] [address] * (ABNORMAL) Haptoglobin (06/03/2025 10:03 AM EDT) HAPTOGLOBIN 21(L) 30 - 200 mg/dL [facility] LIC# [id number] Comment:INTERPRET WITH CAUTI ON, SPECIMEN HEMOLYZED Blood 06/03/2025 10:0 3 AM EDT 06/03/2025 10:09 AM EDT Collin Vieira MD LAB BLOOD ORDERABLES Final Res ult [facility] LIC# [id number] [address] [place] [address] * Lipid panel (11/26/2024 10:19 AM EST) CHOLESTEROL 153 <200 mg/dL [facility] LIC# [id number] TRIGLYCERIDES 87 35 - 150 mg/dL [facility] LIC# [id number] HDL 62 40 - 80 mg/dL [facility] LIC# [id number] CALCULATED LDL 74 50 - 129 mg/dL [facility] LIC# [id number] VLDL 17 <31 mg/dL [facility] LIC# [id number] CARDIAC RISK RATIO 2.5 0.0 - 5.0 D [facility] LIC# [id number] Blood 11/26/2024 10:1 9 AM EST 11/26/2024 10:30 AM EST Collin Vieira MD LAB BLOOD ORDERABLES Final Res ult [facility] LIC# [id number] [address] [place], [place] [id number] * Hepatitis C antibody, qualitative (12/18/2018 2:19 PM EST) HCV Nonreactive Nonreactive [facility] 12/18/2018 2:19 PM EST 12/18/2018 2:53 PM EST [facility] Hank Wilson MD LAB BLOOD ORDERABLES Final Result [facility] [address] [place] [address] from Last 3 Months or Most Recently Relevant to Health Maintenance [facility] EPO [facility] POS EPO [facility] POS EPO [facility]PO [facility]PO [facility] EPO [facility] POS EPO [facility] POS EPO MEDICARE PART A & B [facility] POS EPO MEDICARE PART A & B Care Teams Regional Marketing Manager Relationship Specialty Start Date End Date Julissa Hand MD [address] [place] [phone] PCP - General Internal Medicine 01/30/21 Collin Vieira MD [address] [place] [address] [email or web address] Oncology 12/26/18 Additional Source Comments The information contained in this document represents components of the legal health record. It is not the complete legal health record.[facility]
--- OUTSIDE RECORDS SUMMARY | 2025-08-05 11:36 | XMS_ITS | Clinical Summary ---
Author Organization [facility] Address [address] [place] [address] Care Team Providers Care Fund Director Name Role Phone Julissa Taylor MD Primary Care Provider [phone] Allergies Active Allergy Reactions Criticality Noted Date [...] 82 02/02/2021 12:01 PM EDT Temperature 36.4 C (97.5 F) 02/02/2021 12:01 PM EDT Respiratory Rate 18 01/10/2019 11:47 AM EDT [...] 2 - PPSV23 or PCV20) 08/25/2021 06/30/2021 Fall Risk Assessment 2024 Osteoporosis Screening (DEXA Scan) 2024 Influenza Vaccine (#1) 2025 , 07/04/2018 Hepatitis C Screening Completed 12/18/2018 Hepatitis B Vaccines Aged Out No long er eligible based on patient's age to complete this topic RSV Ped < 20 months Aged Out No longe r eligible based on patient's age to complete this topic Care Teams Fund Director Relationship Specialty Start Date End Date Julissa Taylor MD PCP - General Internal Medicine 01/26/21
== END 2025-08-05 10:46 | disposition home or self-care (01) ==
LOC: HO.HMCFM 10:06
PROVIDERS: PCP Internal Medicine; Visit Provider Internal Medicine
DX: I10 Essential (primary) hypertension (principal); D61.9 Aplastic anemia, unspecified; D59.5 Paroxysmal nocturnal hemoglobinuria [Marchiafava-Micheli]

== ENCOUNTER 2025-08-05 10:05 | Outpatient (REF) | payer OTHER, SELFPAY ==
[2025-08-05 13:55] LABS: MANUAL DIFF FLAG NO
[2025-08-05 14:04] LABS: Hematocrit 34.6 % (37.0-47.0); Hemoglobin 11.7 g/dl (12.0-16.0); Imm Gran Abs Auto 0.02 X10*3/uL (0.00-0.03); Imm Gran Pct Auto 0.5 % (0.0-0.4); Lymphocytes Absolute Auto 1.2 X10*3/uL (1.2-4.9); Mean Corpuscular HGB Conc 33.8 g/dl (31.0-35.0); Mean Corpuscular Hemoglobin 33.0 pg (27.0-33.0); Mean Corpuscular Volume 97.5 fL (80.0-98.0); NRBC Abs Auto 0.000 X10*3/uL (0.0-0.012); NRBC Pct Auto 0.0 /100WBC (0.0-0.2); Platelet Count 374 X10*3/uL (160-400); Red Blood Count 3.55 X10*6/uL (4.20-5.50); White Blood Count 3.7 X10*3/uL (4.8-10.8)
[2025-08-05 14:32] LABS: Alanine Aminotransferase 23 U/L (0-31); Albumin Level 4.4 g/dL (3.5-5.0); Alkaline Phosphatase 73 U/L (39-117); Anion Gap 13 (12-20); Aspartate Amino Transferase 34 U/L (5-31); Blood Urea Nitrogen 23 mg/dL (9-16); Calcium 9.6 mg/dL (8.4-10.2); Carbon Dioxide 25 mmol/L (22-29); Chloride 98 mmol/L (96-108); Cholesterol 194 mg/dL (<200); Estimated Glomerular Filt Rate 48; HDL Cholesterol 67 mg/dL (>40); Potassium 4.1 mmol/L (3.3-5.1); Sodium 132 mmol/L (135-145); Total Protein 6.8 g/dL (6.5-8.0); Triglycerides 84 mg/dL (<150)
[2025-08-05 15:04] LABS: Folate 12.9 ng/mL (> or = 4.0); Vitamin B12 365 pg/mL (200-900)
[2025-08-09 14:18] LABS: Vitamin D 25-OH, D2 <4 ng/mL; Vitamin D 25-OH, D3 27 ng/mL; Vitamin D 25-OH, Total 27 ng/mL (30-100)
== END 2025-08-05 10:06 | disposition home or self-care (01) ==
LOC: HO.WFDLDS 10:05
PROVIDERS: PCP Internal Medicine; Visit Provider Internal Medicine
DX: I10 Essential (primary) hypertension (principal); D61.9 Aplastic anemia, unspecified; E28.39 Other primary ovarian failure; D59.5 Paroxysmal nocturnal hemoglobinuria [Marchiafava-Micheli]; Z13.228 Encounter for screening for other metabolic disorders; Z79.899 Other long term (current) drug therapy
CPT/HCPCS: 36415; 80053; 80061; 82306; 82607; 82746; 85025; 96127